=== PATIENT | male | born 1975 | race Hispanic/Latino ===

== ENCOUNTER 2025-01-23 22:45 | Emergency (ER) | payer OTHER ==
[~2025-01-23] VITALS: Ht 180.3 cm; Wt 131.1 kg
[2025-01-23 23:14] LABS: APPEARANCE,URINE CLOUDY (CLEAR); GLUCOSE, URINE (UA) 200 mg/dL (NEGATIVE); LEUKOCYTE ESTERASE ,URINE 500 Leu/uL (NEGATIVE); NITRATE,URINE 1+ (NEGATIVE); OCCULT BLOOD,URINE LARGE (NEGATIVE)
--- NOTE | 2025-01-23 23:29 | ERN ---
General Chief Complaint: Blood in Urine: Stated Complaint: C/O PAIN W/BURNING WHEN VOIDING, BLOOD IN URINE Time Seen by MD: 22:50 History of Present Illness Initial Comments 49-year-old male history of hypertension, diabetes and arthritis, chronic back pain here for evaluation of hematuria. Patient states he was in normal state of health today when he had a episode of blood in urine with some dysuria. Never has happened before in the past last he decided come in the emergency room for evaluation. Denies any abdominal pain. Denies any colicky upper or lower back pain. Denies any chest pain or palpitations. Allergies: Coded Allergies: No Known Allergies (Unverified Allergy, Unknown, 01/23/25) Past Medical History Past Medical History: Arthritis, Diabetes-Type II, Hypertension Past Surgical History: None Genitourinary: (+) dysuria, (+) hematuria Review of Systems: was completed, & the rest were negative. Physical Exam Physical Exam Dictation GENERAL APPEARANCE NAD, activity normal for age, well developed/ well nourished, no cyanosis, pallor, or diaphoresis. EYES lids/conjunctiva normal. EARS/NOSE/THROAT Mucous membranes moist, nares normal, lips/teeth normal uvula midline without oral pharyngeal erythema, exudate or swelling TMs normal bilaterally. No lymphangitis/lymphedema. HEAD/NECK normocephalic atraumatic, no facial trauma, neck is supple. RESPIRATORY respiratory effort normal, speaks in full sentences, no tripod position, no accessory muscle use. Lungs clear to auscultation without rhonchi, wheezes, rales CARDIAC Regular rate and rhythm, no edema. ABDOMINAL Soft, ND/NT. No evidence of fluid wave. No pulsatile masses on exam, rebound tenderness, Jim sign or pain over Mcburney's point. MUSCLES/EXTREMITIES No abnormal range of motion, no swelling. SKIN Warm, pink and dry. No rashes, dermatoses, petechiae or lesions. NEUROLOGICAL Speech is clear and appropriate. Normal level of consciousness. Gait and coordination are normal. 5/5 strength in all extremities. PSYCH Normal mood and affect. Judgement/competence is appropriate No CVA tenderness. No abdominal tenderness. Results Laboratory and Microbiology Lab and Micro Result Laboratory Tests Test 01/23/25 23:00 Urine Color LIGHT-ORANGE (YELLOW) Urine Appearance CLOUDY (CLEAR) H Urine pH 6.0 (5.0-8.0) Urine Specific [place] 1.029 (1.001-1.031) Urine Protein 30 mg/dL (NEGATIVE) H Urine Glucose (UA) 200 mg/dL (NEGATIVE) H Urine Ketones NEGATIVE mg/dL (NEGATIVE) Urine Occult Blood LARGE (NEGATIVE) H Urine Nitrate 1+ (NEGATIVE) H Urine Bilirubin NEGATIVE mg/dL (NEGATIVE) Urine Urobilinogen 0.2 mg/dL (0.2-1.0) Urine Leukocyte Esterase 500 Margaret/uL (NEGATIVE) H Urine RBC TNTC /HPF (0-1) H Urine WBC TNTC /HPF (0-1) H Urine Bacteria FEW /HPF (None Seen) MDM 49-year-old male here for evaluation of hematuria. We will get a UA and reassess. Likely discharge home. If positive we will discharge home on appropriate antibiotics. ED Course Orders Procedure Category Date Status Time Urinalysis Profile LAB 01/23/25 Complete 22:50 Culture Urine NAVID 01/23/25 In Process 23:31 Ceftriaxone 2gm Vial PHA 01/24/25 In Process (Rocephin 2gm Inj) 00:30 Current Medications Medications (Trade) Dose Ordered Sig/Chris Route PRN Reason Start Time Stop Time Status Last Admin Dose Admin Ceftriaxone Sodium (Rocephin 2gm Inj) 2 gm ONCE ONCE IVPB 01/24/25 00:30 01/24/25 00:31 Vital Signs Date Time Temp Pulse Resp B/P (MAP) Pulse Ox O2 Delivery O2 Flow Rate FiO2 01/23/25 23:46 99.1 117 17 148/83 96 Room Air* 0 21 01/23/25 22:47 99.0 122 20 173/84 95 Room Air DX & DISP Disposition: Discharge Departure Impression: Primary Impression: UTI (urinary tract infection) Condition: Stable Scripts Sulfamethoxazole/Trimethoprim (Bactrim Ds Tablet) 800 Mg-160 Mg Tablet 1 TAB PO BID for 10 Days, #20 TAB 0 Refills Prov: YUE JUDGE MD 01/24/25 YUE JUDGE MD Jan 23, 2025 23:29
[2025-01-23 23:31] LABS: ADD UA MICROSCOPIC YES
[2025-01-24 01:19] VITALS: BP 161/93; PULSE 98; RESP 16; TEMP 98.9; O2SAT 98
== END 2025-01-24 01:21 | disposition home or self-care (01) ==
LOC: EDH 22:45
DX: N39.0 Urinary tract infection, site not specified (principal); E11.9 Type 2 diabetes mellitus without complications; G89.29 Other chronic pain; I10 Essential (primary) hypertension; M19.90 Unspecified osteoarthritis, unspecified site
CPT/HCPCS: 99283; 87086 ×2; 87186; 81001; 96374; J0696